=== PATIENT | female | born 1960 | race Caucasian/White ===

== ENCOUNTER 2020-05-12 10:52 | Outpatient (CLI) | payer BC, SELFPAY ==
[2020-05-12 11:44] LABS: Alanine Aminotransferase 16 U/L (4-35); Albumin Level 4.2 g/dL (3.5-5.1); Alkaline Phosphatase 79 U/L (38-126); Anion Gap 6 mmol/L (8-16); Aspartate Amino Transferase 23 U/L (14-36); Bilirubin,Total 0.4 mg/dL (0.2-1.3); Blood Urea Nitrogen 12 mg/dL (7-17); Calcium 9.1 mg/dL (8.4-10.2); Carbon Dioxide 32 mmol/L (22-30); Chloride 104 mmol/L (98-107); Cholesterol 168 mg/dL (0-200); Estimated Glomerular Filt Rate > 60; Glucose 89 mg/dL (65-105); HDL Direct 48 mg/dL; Potassium 4.1 mmol/L (3.4-5.0); Sodium 142 mmol/L (137-145); Triglycerides 100 mg/dL (<150)
[2020-05-12 11:55] LABS: LDL Cholesterol Direct 91 mg/dL
== END 2020-05-12 10:53 | disposition home or self-care (01) ==
PROVIDERS: PCP Family Medicine; Visit Provider Physician Assistant
DX: Z00.00 Encounter for general adult medical examination without abnormal findings (principal)
CPT/HCPCS: 36415; 80053; 80061

== ENCOUNTER 2022-01-16 10:27 | Outpatient (CLI) | payer BC, OTHER, SELFPAY ==
[2022-01-16 11:19] LABS: Alanine Aminotransferase 17 U/L (6-35); Albumin Level 4.3 g/dL (3.5-5.1); Alkaline Phosphatase 97 U/L (38-126); Anion Gap 7 mmol/L (8-16); Aspartate Amino Transferase 22 U/L (14-36); Bilirubin,Total 0.5 mg/dL (0.2-1.3); Blood Urea Nitrogen 13 mg/dL (7-17); Calcium 9.3 mg/dL (8.4-10.2); Carbon Dioxide 32 mmol/L (22-30); Chloride 99 mmol/L (98-107); Cholesterol 199 mg/dL (0-200); Estimated Glomerular Filt Rate > 60; Glucose 100 mg/dL (65-110); HDL Direct 45 mg/dL; Potassium 4.3 mmol/L (3.4-5.0); Sodium 138 mmol/L (137-145); Triglycerides 130 mg/dL (<150)
[2022-01-16 11:36] LABS: LDL Cholesterol Direct 121 mg/dL
== END 2022-01-16 10:28 | disposition home or self-care (01) ==
PROVIDERS: PCP Family Medicine; Visit Provider Physician Assistant
DX: Z13.220 Encounter for screening for lipoid disorders (principal); Z13.1 Encounter for screening for diabetes mellitus
CPT/HCPCS: 36415; 80053; 80061

== ENCOUNTER → 2022-03-28 12:45 | Outpatient (CLI) | payer BC, OTHER, SELFPAY ==
--- NOTE | ~2022-03-28 | MM_ITS ---
EXAMINATION: MM screening joe BI w mandy HISTORY: Screening TECHNIQUE: Craniocaudal and mediolateral oblique 3-D tomosynthesis images were obtained and synthetic 2-D images were generated. CAD analysis was submitted and interpreted. COMPARISON: Comparison to multiple prior studies sequentially, with oldest reviewed study dated 08/06. BREAST PARENCHYMAL COMPOSITION: The breasts are heterogeneously dense, which may obscure small masses FINDINGS: There are multiple bilateral breast masses scattered throughout both breasts which are part ially obscured by fibroglandular tissue. Some of these masses are new or increased in size compared w ith prior examinations. IMPRESSION: 1. New or developing bilateral breast masses. 2. Additional mammographic views and possible breast ultrasound are recommended. BI-RADS Category 0: Incomplete: Needs additional imaging evaluation. Reviewed, dictated and finalized at location A. IMPRESSION: 1. New or developing bilateral breast masses. 2. Additional mammographic views and possible breast ultrasound are recommended . BI-RADS Category 0: Incomplete: Needs additional imaging evaluation.
== END ==
PROVIDERS: PCP Family Medicine; Visit Provider Physician Assistant
DX: Z12.31 Encounter for screening mammogram for malignant neoplasm of breast (principal); R92.8 Other abnormal and inconclusive findings on diagnostic imaging of breast
CPT/HCPCS: 77063; 77067

== ENCOUNTER → 2022-04-18 08:46 | Outpatient (CLI) | payer BC, OTHER, SELFPAY ==
--- NOTE | ~2022-04-18 | MMUS_ITS ---
EXAMINATION: MM diagnostic joe BI w mandy, US breast BI complete HISTORY: Follow-up bilateral breast masses TECHNIQUE: Additional 3-D tomosynthesis images of the breasts were performed and synthetic 2-D images were generated. CAD analysis was submitted and interpreted. High resolution bilateral complete breas t ultrasound was performed. COMPARISON: Comparison to multiple prior studies sequentially, with oldest reviewed study dated 09/08. BREAST PARENCHYMAL COMPOSITION: The breasts are heterogeneously dense, which may obscure small masses FINDINGS: MAMMOGRAPHIC FINDINGS: There are persistent bilateral breast masses scattered throughout both breasts which are obscured by dense fibroglandular tissue. ULTRASOUND: Complete bilateral US of all 4 quadrants of the breasts and retroareolar region was reviewed. Right breast: There are multiple cysts of the right breast. At 1:00, 3 cm from the nipple there is a 5 mm oval hypoechoic mass without posterior enhancement, parallel orientation, no significant posteri or features or internal vascularity. At 3:00, 4 cm from the nipple there is an oval hypoechoic mass m easuring 3 mm, likely a complicated cyst. At 5:00, 4 cm from the nipple, there is a 6 mm cyst. At 9:0 0, 5 cm from the nipple, there is a 5 mm cyst. Left breast: At 1:00, 2 cm from the nipple there is an oval hypoechoic mass measuring 6 mm with low-l evel internal echoes, parallel orientation, posterior acoustic enhancement and no significant vascula rity. At 2:00, 7 cm from the nipple there is a 4 mm cyst. At 2:00, 6 cm from the nipple there is a 6 mm cyst. At 2:00, 6 cm from the nipple there is 5 mm cyst. At 6:00, 4 cm from the nipple there is an oval slightly hypoechoic 7 mm mass with some areas of posterior shadowing, no internal vascularity an d parallel orientation. At 7:00, 4 cm from the nipple there is a minimally complicated cyst, likely c ontaining calcification. At 8:00, 3 cm from the nipple there is a 5 mm cyst. At 11:00, 5 cm from the nipple, there is an oval hypoechoic 3 mm mass likely a complicated cyst. IMPRESSION: 1. Solid-appearing hypoechoic mass of the left breast at 6:00, 4 cm from the nipple with some areas o f posterior shadowing. Ultrasound-guided left breast biopsy recommended. 2. Multiple additional likely benign bilateral breast masses are identified by ultrasound and mammogr am. Six-month follow-up bilateral mammogram and ultrasound recommended for these masses. BI-RADS category 4, suspicious findings. Reviewed, dictated and finalized at location A. IMPRESSION: 1. Solid-appearing hypoechoic mass of the left breast at 6:00, 4 cm from the ni pple with some areas of posterior shadowing. Ultrasound-guided left breast biop sy recommended. 2. Multiple additional likely benign bilateral breast masses are identified by ultrasound and mammogram. Six-month follow-up bilateral mammogram and ultrasoun d recommended for these masses. BI-RADS category 4, suspicious findings.
== END ==
PROVIDERS: PCP Family Medicine; Visit Provider Family Medicine
DX: R92.8 Other abnormal and inconclusive findings on diagnostic imaging of breast (principal)
CPT/HCPCS: 76641; 77062; 77066; G0279

== ENCOUNTER → 2023-06-06 13:48 | Outpatient (CLI) | payer BC, OTHER, SELFPAY ==
--- NOTE | ~2023-06-06 | MM_ITS ---
EXAMINATION: MM screening joe BI w mandy HISTORY: Screening mammogram TECHNIQUE: Craniocaudal and mediolateral oblique 3-D tomosynthesis images were obtained and synthetic 2-D images were generated. CAD analysis was submitted and interpreted. COMPARISON: 04/18/2022 diagnostic bilateral mammogram and bilateral complete breast ultrasound examina tion 03/28/2022 bilateral screening mammogram 02/02/2020 bilateral screening mammogram BREAST PARENCHYMAL COMPOSITION: The breasts are heterogeneously dense, which may obscure small masses . FINDINGS: There are scattered bilateral benign calcifications. There are multiple scattered bilateral benign appearing circumscribed low density subcentimeter opaci ties. There is no evidence of suspicious mass, calcification, or architectural distortion to suggest malign emely in either breast. There has been no suspicious interval change. IMPRESSION: 1. Benign findings. No mammographic evidence of malignancy. 2. Recommend routine screening mammography in one year. BI-RADS Category 2: Benign finding(s). Reviewed, dictated and finalized at location A. TECHNICIAN
== END ==
PROVIDERS: PCP Physician Assistant; Visit Provider Physician Assistant
DX: Z12.31 Encounter for screening mammogram for malignant neoplasm of breast (principal)
CPT/HCPCS: 77063; 77067

== ENCOUNTER → 2023-08-01 12:12 | Outpatient (CLI) | payer BC, OTHER, SELFPAY ==
--- NOTE | ~2023-08-01 | DEXA_ITS ---
Bone Density Report Name: PO FOLEY Age: 62 Sex: Female Ethnicity: White Date of : 1960 Indication: postmenopausal; screening for osteoporosis; height loss; hysterectomy; Referring Provider: ADARSH BANEGAS Study: Bone densitometry was performed. Exam Date: August 01, 2023 Accession number: [id number] Bone Density: Region BMD T-score Z-score Classification AP Spine (L1-L4) 1.018 -0.3 1.3 Normal Femoral Neck (Left) 0.810 -0.3 1.0 Normal Total Hip (Left) 1.030 0.7 1.8 Normal Femoral Neck (Right) 0.834 -0.1 1.3 Normal Total Hip (Right) 1.012 0.6 1.7 Normal Total Hip Mean 1.021 0.7 1.8 Normal World Health Organization criteria for BMD impression classify patients as: Normal (T-score at or above -1.0), Osteopenia (T-score between -1.0 and -2.5), or Osteoporosis (T-score at or below -2.5). 10-year Fracture Risk: FRAX not reported because: All T-scores for Spine Total, Hip Total, Femoral Neck at or above -1.0 Clinical Information Provided by Patient: Has the following medical conditions: Hysterectomy Patient maximum height was 64.25 Menopause Age: 39 No regular weight bearing exercise Does not regularly consume dairy products Drinks caffeinated beverages Onset of menses at age 13 Number of children 2 Impression: The patient has normal bone mass. Discussion: BONE DENSITY IS ABOVE THE MINIMUM DESIRABLE LEVEL AT ALL SKELETAL SITES TESTED. This patient?s bone mineral density is above the minimum desirable level (T-score -1.0 or better) at all sites measured. The patient should follow a healthful lifestyle (good nutrition with adequate calcium and vitamin D, and appropriate weight-bearing exercise). Follow-Up: Consider repeating this study in 5 years or sooner if there is some new clinical indication. Reported by: [facility] on 08/01/2023 12:28:00 PM. Reviewed, dictated and finalized at location AFelipa DELEON
== END ==
PROVIDERS: PCP Physician Assistant; Visit Provider Physician Assistant
DX: Z78.0 Asymptomatic menopausal state (principal)
CPT/HCPCS: 77080

== ENCOUNTER 2024-01-29 09:54 | Outpatient (CLI) | payer BC, OTHER, SELFPAY ==
[2024-01-29 10:51] LABS: Alanine Aminotransferase 25 U/L (6-35); Albumin Level 4.2 g/dL (3.5-5.1); Alkaline Phosphatase 92 U/L (38-126); Anion Gap 7 mmol/L (4-12); Aspartate Amino Transferase 28 U/L (14-36); Bilirubin,Total 0.4 mg/dL (0.2-1.3); Blood Urea Nitrogen 12 mg/dL (7-17); Carbon Dioxide 32 mmol/L (22-30); Chloride 100 mmol/L (98-107); Cholesterol 203 mg/dL (0-200); Estimated Glomerular Filt Rate > 60; Glucose 87 mg/dL (65-110); HDL Direct 52 mg/dL; Potassium 4.2 mmol/L (3.4-5.0); Sodium 139 mmol/L (137-145); Triglycerides 166 mg/dL (<150)
[2024-01-29 11:03] LABS: LDL Cholesterol Direct 114 mg/dL
== END 2024-01-29 09:55 | disposition home or self-care (01) ==
LOC: ANHLAB 09:55
PROVIDERS: PCP Family Medicine; Visit Provider Student in an Organized Health Care Education/Training Program
DX: Z00.00 Encounter for general adult medical examination without abnormal findings (principal)
CPT/HCPCS: 36415; 80053; 80061

== ENCOUNTER 2024-03-24 10:00 | Outpatient (RCR) | payer BC, OTHER, SELFPAY ==
--- NOTE | 2024-01-18 10:55 | OPREHPOC ---
Outpatient Therapy Plan of Care This is a Multidisciplinary Plan of Care that may contain components documented by all disciplines (PT, OT, and ST.) PT Problem 1 PT Problem #1 Knowledge Deficit PT Goal 1 Goal *indep with HEP Target Visit 8 PT Problem 2 PT Problem #2 Pain PT Goal 1 Goal 1* pain rating L ankle of 5/10 at worst 2* pt self assessment LE functional scale rating of 28% limitation in activity 3* pt report standing/walking tolerance of 2 hours before have to sit down Target Visit 8 PT Problem 3 PT Problem #3 Impaired Strength PT Goal 1 Goal increase strength of L ankle, to improve stability with walking and activity 1* single leg standing x 15 seconds 2* 2 minute walking test distance of 520' 3* sitting with heel on ground, ankle inversion and eversion with 4# wt over forefoot x 10 reps through full ROM Target Visit 8
--- NOTE | 2024-01-18 10:55 | PTOPEVAL1 ---
Assessment and note entered by Nirali Rowland PT Evaluation Information Assessment Status Evaluation Diagnosis peroneal tendinitis L ICD-10 Condition Codes (PT) M25.572,R26.9,Weakness R53.1 Onset August 2023 Subjective Information chronic issues with ankle sprain/pain; gradual increase without any recent injury; had injection 12-19-23: helped a little with the pain, but not as much as the injections in the past have; had PT in the past: doing exercises from: ABC's, ankle stretch and moving around, standing PF, gastroc stretch; activity: indep with home and self care tasks, but move slowly- take steps one at a time for laundry in basement; walking is limited due to ankle pain; 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 Self assessment LE functional scale rating of 41% limitation in activity level. Standing, walking and sleeping are limited due to ankle pain. With the evaluation: ankle ROM is WNL, with weakness of inversion and eversion motions and decreased single leg standing. Two minute walking test distance of 450' with pain increase to 2/10; spasms and tenderness with palpation over distal -lateral malleoli and heel areas, with spasms through gastroc - soleus. Skilled PT services are indicated for modalities to decrease pain, therapeutic exercises to increase ankle strength with education for HEP and posture of foot/ankle. Plan of Care Interventions Elect
--- NOTE | 2024-01-18 11:01 | PCPTNOTE ---
during eval, pt stated that she will be out of town from Feb 03 to Mar 06.
--- NOTE | 2024-03-24 10:52 | PTOPDC ---
Assessment and note entered by Rene Stewart, PT Evaluation Information Assessment Status Discharge Diagnosis peroneal tendinitis L ICD-10 Condition Codes (PT) M25.572,R26.9,Weakness R53.1 Onset August 2023 Subjective Information Reports that she feels she is significantly better overall. She has minimal pain at worst and feels she is walking much better. She does not feel inhibited by her ankle at this time. Reported Pain Level Pain Score 0: Self Report Assessment PT Clinical Summary Patient has met all goals for therapy and is suitable for discharge to [facility] at this time. No concerns for discharge. Plan of Care PT Services Indicated D/C to [facility]
== END 2024-03-24 11:52 | disposition home or self-care (01) ==
LOC: ANHPT 10:00
PROVIDERS: PCP Physician Assistant; Visit Provider Orthopaedic Surgery
DX: M76.72 Peroneal tendinitis, left leg (principal)
CPT/HCPCS: 97110; 97116; 97140; 97161; 97530

== ENCOUNTER 2024-07-09 14:17 | Outpatient (CLI) | payer BC, OTHER, SELFPAY ==
--- NOTE | ~2024-07-09 | MM_ITS ---
EXAMINATION: MM screening joe BI w mandy HISTORY: Screening TECHNIQUE: Craniocaudal and mediolateral oblique 3-D tomosynthesis images were obtained and synthetic 2-D images were generated. CAD analysis was submitted and interpreted. COMPARISON: Comparison to multiple prior studies sequentially, with oldest reviewed study dated 09/28. BREAST PARENCHYMAL COMPOSITION: Dense: The breasts are heterogeneously dense, which may obscure small masses FINDINGS: There are multiple obscured bilateral breast masses. There are scattered bilateral benign-a ppearing breast calcifications. IMPRESSION: 1. Multiple bilateral breast masses. 2. Additional mammographic views and possible breast ultrasound are recommended. BI-RADS Category 0: Incomplete: Needs additional imaging evaluation. Reviewed, dictated and finalized at location A. AGE CONTROL CLERK IMPRESSION: 1. Multiple bilateral breast masses. 2. Additional mammographic views and possible breast ultrasound are recommended . BI-RADS Category 0: Incomplete: Needs additional imaging evaluation.
== END 2024-07-09 14:18 | disposition home or self-care (01) ==
PROVIDERS: PCP Family Medicine; Visit Provider Student in an Organized Health Care Education/Training Program
DX: Z12.31 Encounter for screening mammogram for malignant neoplasm of breast (principal); R92.8 Other abnormal and inconclusive findings on diagnostic imaging of breast
CPT/HCPCS: 77063; 77067

== ENCOUNTER 2024-07-22 09:49 | Outpatient (CLI) | payer BC, OTHER, SELFPAY ==
--- NOTE | ~2024-07-22 | MMUS_ITS ---
EXAMINATION: US breast BI complete, MM diagnostic joe BI w mandy HISTORY: Follow-up bilateral breast masses TECHNIQUE: Additional 3-D tomosynthesis images of the breasts were performed and synthetic 2-D images were generated. CAD analysis was submitted and interpreted. High resolution complete bilateral breas t ultrasound was performed. COMPARISON: Comparison to multiple prior studies sequentially, with oldest reviewed study dated 03/18. BREAST PARENCHYMAL COMPOSITION: Dense: The breasts are heterogeneously dense, which may obscure small masses FINDINGS: MAMMOGRAPHIC FINDINGS: There are multiple small bilateral breast masses scattered throughout both breasts, partially obscure d by fibroglandular tissue. There are benign bilateral breast calcifications. No architectural distor tion. ULTRASOUND: Complete US of all 4 quadrants of the breast/s and retroareolar region was reviewed. There are multip le bilateral simple cysts throughout both breasts. There are no suspicious masses in either breast to suggest malignancy. IMPRESSION: 1. No evidence for malignancy in either breast. Benign bilateral breast cysts corresponding to masses identified on mammography. 2. Routine yearly screening mammogram and regular clinical breast examination are recommended. BI-RADS Category 2: Benign finding(s). Reviewed, dictated and finalized at location B. NERATION OPERATOR IMPRESSION: 1. No evidence for malignancy in either breast. Benign bilateral breast cysts c orresponding to masses identified on mammography. 2. Routine yearly screening mammogram and regular clinical breast examination a re recommended. BI-RADS Category 2: Benign finding(s).
== END 2024-07-22 09:50 | disposition home or self-care (01) ==
LOC: MICIMG 09:52
PROVIDERS: PCP Family Medicine; Visit Provider Student in an Organized Health Care Education/Training Program
DX: N63.0 Unspecified lump in unspecified breast (principal)
CPT/HCPCS: 76641; 77062; 77066; G0279

== ENCOUNTER 2024-08-04 10:28 | Outpatient (CLI) | payer BC, OTHER, SELFPAY ==
[2024-08-04 10:44] LABS: Basophils Percent Auto 0.4 % (0.2-1.2); Eosinophils Absolute Auto 0.1 K/mm3 (0-0.3); Eosinophils Percent Auto 1.8 % (0-4.4); Hematocrit 35.2 % (37.0-47.0); Hemoglobin 10.5 g/dL (12.0-15.0); Immature Granulocyte Absolute 0.02 K/mm3 (0.00-0.031); Immature Granulocyte Percent A 0.3 % (0-0.5); Lymphocytes Absolute Auto 3.05 K/mm3 (0.9-3.2); Lymphocytes Percent Auto 45.1 % (18.3-44.2); Mean Corpuscular HGB Conc 29.8 g/dl (32-36); Mean Corpuscular Hemoglobin 27.6 pg (26-34); Mean Corpuscular Volume 92.4 fl (80-100); Mean Platelet Volume 10.1 fl (7.4-10.4); Monocytes Absolute Auto 0.4 K/mm3 (0.1-0.6); Monocytes Percent Auto 6.4 % (2.6-8.5); Neutrophils Absolute Auto 3.1 K/mm3 (1.3-6.7); Platelet Count Result 224 k/mm3 (150-375); Red Blood Count 3.81 M/mm3 (4.2-5.4); Red Cell Distribution Width 15.6 % (11.5-14.5); White Blood Count 6.8 K/mm3 (4.5-10.0)
[2024-08-04 10:52] LABS: Hemoglobin A1C 5.3 % (<5.7)
[2024-08-04 11:03] LABS: Alanine Aminotransferase 21 U/L (6-35); Albumin Level 4.1 g/dL (3.5-5.1); Alkaline Phosphatase 86 U/L (38-126); Anion Gap 9 mmol/L (4-12); Aspartate Amino Transferase 25 U/L (14-36); Bilirubin,Total 0.6 mg/dL (0.2-1.3); Blood Urea Nitrogen 12 mg/dL (7-17); Calcium 9.2 mg/dL (8.4-10.2); Carbon Dioxide 28 mmol/L (22-30); Chloride 103 mmol/L (98-107); Cholesterol 196 mg/dL (0-200); Estimated Glomerular Filt Rate > 60; Glucose 93 mg/dL (65-110); HDL Direct 49 mg/dL; Potassium 4.3 mmol/L (3.4-5.0); Sodium 140 mmol/L (137-145); Triglycerides 116 mg/dL (<150)
[2024-08-04 11:14] LABS: LDL Cholesterol Direct 110 mg/dL
[2024-08-04 11:26] LABS: Free T4 Free Thyroxine 1.02 ng/dL (0.78-2.19)
[2024-08-04 11:58] LABS: Eosinophils Absolute Manual 0.13 K/mm3 (0.02-0.50); Eosinophils Percent Manual 2 % (0-4); Lymphocytes Absolute Manual 3.19 K/mm3 (1.1-4.5); Lymphocytes Percent Manual 47 % (18-44); Monocytes Absolute Manual 0.47 K/mm3 (0.1-0.90); Monocytes Percent Manual 7 % (3-9); Neutrophils Percent Manual 47 % (46-73); Total Cells Counted 100
[2024-08-04 11:59] LABS: Hypochromasia 1+; Platelet Estimate Adequate (Adequate); Schistocytes None Seen
--- OUTSIDE RECORDS SUMMARY | 2024-08-04 13:35 | XMS_ITS | Encounter Summary ---
Author Organization [facility] Healthcare Address [address] [place] [address] Care Team Providers Care Paintless Dent Repair Technician Name Role Phone Unavailable Primary Care Provider Unavailabl e Reason for Visit * Diagnostic Imaging (Routine) - Closed Specialty Diagnoses / Procedures Referred By Contac t Referred To Contact Procedures Breast Imaging Screening Outside Reference Meli Farley MD Phone: tel: fax: Referral ID Status Reason Start Date Expiration Date Visits Re quested Visits Authorized [id number] Closed 04/21/2022 05/21/2023 1 1 Encounter Details Date Type Department Care Team (Late st Contact Info) Description 08/03/2014 Hospital Encounter [facility] [address] [place] [id number] Social History Tobacco Use Types Packs/Day Years Used Date Smoking Tobacco: Never Assessed Comments Unknown Sex and Gender Information Value Date Recorded Sex Assigned at Not on file Legal Sex Female 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 Gender Identity Not on file Sexual Orientation Not on file documented as of this encounter Plan of Treatment Not on file documented as of this encounter Procedures Procedure Name Priority Date/Time Associated Diagnosis Comments BREAST IMAGING MG SCREENING OUTSIDE REFERENCE Routine 08/03/2014 12:00 AM COAL BRIQUETTE MACHINE OPERATOR documented in this encounter Results * Breast Imaging Screening Outside Reference (08/03/2014 12:00 AM COAL BRIQUETTE MACHINE OPERATOR) Impressions RAD_MAMMO[facility] - 04/21/2022 1:09 PM CDT These images are for Reference purposes only and have not been reviewed by [facility]iology. There will be no report generated by a [facility] Radiologist. Narrative [facility]_MAMMO[facility] - 04/21/2022 1:09 PM CDT EXAMINATION: Images For Reference Purposes Only us Meli Farley MD IMG MAMMO PROCEDURES Final Resu lt [facility] documented in this encounter Visit Diagnoses Not on filedocumented in this encounter
--- OUTSIDE RECORDS SUMMARY | 2024-08-04 13:35 | XMS_ITS | Encounter Summary ---
Author Organization [facility] Healthcare Address [address] [place] [address] Care Team Providers Care Charm Filter Operator Helper Name Role Phone Unavailable Primary Care Provider Unavailabl e Reason for Visit * Diagnostic Imaging (Routine) - Closed Specialty Diagnoses / Procedures Referred By Contac t Referred To Contact Procedures Breast Imaging Diagnostic Outside Reference Meli Farley MD Phone: tel: fax: Referral ID Status Reason Start Date Expiration Date Visits Re quested Visits Authorized [id number] Closed 04/21/2022 05/21/2023 1 1 Encounter Details Date Type Department Care Team (Late st Contact Info) Description 09/22/[address] Encounter 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 There will be no report generated by a [facility] Radiologist. Narrative [facility]_MAMMO[facility] - 04/21/2022 1:13 PM CDT EXAMINATION: Images For Reference Purposes Only us Meli Farlye MD IMG MAMMO PROCEDURES Final Resu lt [facility] documented in this encounter Visit Diagnoses Not on filedocumented in this encounter
--- OUTSIDE RECORDS SUMMARY | 2024-08-04 13:35 | XMS_ITS | Encounter Summary ---
Author Organization [facility] Healthcare Address [address] [place] [address] Care Team Providers Care Mri Supervisor Name Role Phone Unavailable Primary Care Provider Unavailabl e Reason for Visit * Diagnostic Imaging (Routine) - Closed Specialty Diagnoses / Procedures Referred By Contac t Referred To Contact Procedures Breast Imaging Diagnostic Outside Reference Meli Farley MD Phone: tel: fax: Referral ID Status Reason Start Date Expiration Date Visits Re quested Visits Authorized [id number] Closed 04/21/2022 05/21/2023 1 1 Encounter Details Date Type Department Care Team (Late st Contact Info) Description 08/06/2014 Hospital Encounter [facility] [address] [place] [id number] Social History Tobacco Use Types Packs/Day Years Used Date Smoking Tobacco: Never Assessed Comments Unknown Sex and Gender Information Value Date Recorded Sex Assigned at Not on file Legal Sex Female 6:26 PM SINGLE END SEWER Gender Identity Not on file Sexual Orientation Not on file documented as of this encounter Plan of Treatment Not on file documented as of this encounter Procedures Procedure Name Priority Date/Time Associated Diagnosis Comments BREAST IMAGING MG DIAGNOSTIC OUTSIDE REFERENCE Routine 08/06/2014 12:00 AM SINGLE END SEWER documented in this encounter Results * Breast Imaging Diagnostic Outside Reference (08/06/2014 12:00 AM SINGLE END SEWER) Impressions RAD_MAMMO[facility] - 04/21/2022 1:12 PM CDT These images are for Reference purposes only and have not been reviewed by [facility]. There will be no report generated by a [facility] Radiologist. Narrative [facility]_M[facility]MO[facility] - 04/21/2022 1:12 PM CDT EXAMINATION: Images For Reference Purposes Only us Meli Farley MD IMG MAMMO PROCEDURES Final Resu lt [facility] documented in this encounter Visit Diagnoses Not on filedocumented in this encounter
--- OUTSIDE RECORDS SUMMARY | 2024-08-04 13:35 | XMS_ITS | Patient Health Summary ---
Author Organization [facility] Address [address] [address] Care Team Providers Care Computer Help Desk Specialist Name Role Phone Unavailable Primary Care Provider Unavailabl e Note from [facility],non-owned Affiliates and Associated Physician Practices is amultiple site organization consisting of ambulatory clinics and hospital sitesin [place], [place], [place] and [place]. This disclosure is being madepursuant to the Care Everywhere program and may not contain all information available regarding this patient. Last updated 18.[facility] Social History Tobacco Use Types Packs/Day Years Used Date Smoking Tobacco: Never Assessed Sex and Gender Information Value Date Recorded Sex Assigned at Not on file Gender Identity Not on file Sexual Orientation Not on file Procedures * GROSS + MICRO EXAM(Performed 04/29/2007) Results * GROSS + MICRO EXAM (04/29/2007 8:55 AM STAPLE SIDE LASTER) Result CASE NUMBER [id number] Comment: ORDERING PHYSICIAN VICTOR MANUEL OCAMPO SPECIMEN TYPE Ovary with Tube-left *CLINICAL HISTORY A 46 year old female with chronic pelvic pain, pelvic fullness likely secondary to adhesions underwent laparoscopy. SPECIMEN SOURCE A) Left ovary and tube. B) Right ovary and tube. C) Biopsy, intestinal serosa, rule out endometriosis. GROSS DESCRIPTION The specimen is received in one part. A) Received in formalin, labeled with the patient's identification, and designated left ovary and tube are four fragments of [id number], rubbery fragments aggregating to 4 x 4 x 0.3 cm. Grossly, they are consistent with a disrupted ovarian/tubal complex. The largest fragment contains a portion of ovary (2.2 x 1.8 cm) with a 1.2 cm cavity and a portion of fallopian tube measuring 3.5 cm in length x 0.6 cm in greatest diameter. No mass is seen. The serosa of fallopian tube appears focally hyperemic. The remaining small irregular fragment appears to a portion of ovarian tissue. A strategic partnership representative portion is submitted. Cassette summary A1 Ovary and tube, from largest piece. A2 Random section from small fragment. B) Received in formalin, labeled with the patient's identification, and designated right ovary and tube are multiple irregular fragments of disrupted ovarian-tube complex aggregating to 4 x 3 x 0.5 cm. The largest fragment measures up to 3.8 cm and contains a portion of disrupted white-purple ovarian tissue without mass lesions and a portion of probably fallopian tube without recognizable fimbriate measuring 1.6 cm in length x 0.3 cm in diameter. The remainders are small irregular fragments of what appears to be ovarian tissue. A strategic partnership representative portion is submitted in cassettes B1 and B2. Cassette summary B1 Multiple pieces from largest fragment. B2 Random section from small fragments. C) Received in formalin, labeled with the patient's identification, and designated biopsy, intestinal serosa, rule out endometriosis are two minute fragments of brown, soft tissue up to 0.2 x 0.1 x <0.1 cm. Submitted entirely in cassette C1. HC/lw GROSSED BY LEIA BALTAZAR M.D. *MICROSCOPIC EXAM Microscopic examination substantiates the above cited diagnosis. READ BY LEIA BALTAZAR M.D. DIAGNOSIS A) OVARY AND TUBE, LEFT, SALPINGO-OOPHORECTOMY -SEROSAL ADHESIONS WITH FOREIGN BODY GIANT CELL AND HISTIOCYTIC REACTION. -FRAGMENTS OF BENIGN OVARY AND FALLOPIAN TUBE. -PARATUBAL SIMPLE CYST. B) OVARY AND TUBE, RIGHT, SALPINGO-OOPHORECTOMY -SEROSAL ADHESIONS WITH FOREIGN BODY GIANT CELL AND HISTIOCYTIC REACTION. -FRAGMENTS OF BENIGN OVARY AND FALLOPIAN TUBE. -PARATUBAL SIMPLE CYST. -WARTHIAN REST. -ENDOSALPINGIOSIS, OVARY. -MESOTHELIAL CYST, OVARY. C) PERITONEUM, INTESTINAL SEROSA, BIOPSY -FOREIGN BODY GIANT CELL AND HISTIOCYTIC REACTION. *COMMENT There are sheets of foamy macrophages admixed with scattered foreign body giant cells over the ovarian and tubal surface as well as in sections of intestinal serosa. Rare foreign body giant cells in sections of the specimen C are associated with polarizable suture-like material. Evidence of endometriosis or malignancy is not seen. RELEASED BY LEIA BALTAZAR MISCELLANEOUS SAMPLES / Unknown 04/29/2007 8:55 AM STAPLE SIDE LASTER 04/29/2007 12:19 PM STAPLE SIDE LASTER Historical Provider LAB - PATHOLOGY/C YTOLOGY ORDERABLES
--- OUTSIDE RECORDS SUMMARY | 2024-08-04 13:35 | XMS_ITS | Encounter Summary ---
Author Organization [facility] Healthcare Address [address] [place] [address] Care Team Providers Care Senior Electrical Designer Name Role Phone Unavailable Primary Care Provider Unavailabl e Reason for Visit * Diagnostic Imaging (Routine) - Closed Specialty Diagnoses / Procedures Referred By Contac t Referred To Contact Procedures Breast Imaging Screening Outside Reference Meli Farley MD Phone: tel: fax: Referral ID Status Reason Start Date Expiration Date Visits Re quested Visits Authorized [id number] Closed 04/21/2022 05/21/2023 1 1 Encounter Details Date Type Department Care Team (Late st Contact Info) Description 09/28/2016 Hospital Encounter [facility] [address] [place] [phone] Social History Tobacco Use Types Packs/Day Years Used Date Smoking Tobacco: Never Assessed Comments Unknown Sex and Gender Information Value Date Recorded Sex Assigned at Not on file 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 There will be no report generated by a [facility] Radiologist. Narrative RAD_MAMMO_[facility] - 04/21/2022 1:13 PM CDT EXAMINATION: Images For Reference Purposes Only us Meli Farley MD IMG MAMMO PROCEDURES Final Resu lt RAD_MAMMO_[facility] documented in this encounter Visit Diagnoses Not on filedocumented in this encounter
--- OUTSIDE RECORDS SUMMARY | 2024-08-04 13:35 | XMS_ITS | Encounter Summary ---
Author Organization [facility] Healthcare Address [address] [place] [address] Care Team Providers Care Compressor Repairer Name Role Phone Unavailable Primary Care Provider Unavailabl e Reason for Visit * Diagnostic Imaging (Routine) - Closed Specialty Diagnoses / Procedures Referred By Contac t Referred To Contact Procedures Breast Imaging Screening Outside Reference Meli Farley MD Phone: tel: fax: Referral ID Status Reason Start Date Expiration Date Visits Re quested Visits Authorized [id number] Closed 04/21/2022 05/21/2023 1 1 Encounter Details Date Type Department Care Team (Late st Contact Info) Description 04/23/2013 Hospital Encounter [facility]iology [facility] [address] [place] [phone] Social History Tobacco Use Types Packs/Day Years Used Date Smoking Tobacco: Never Assessed Comments Unknown Sex and Gender Information Value Date Recorded Sex Assigned at Not on file 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 Gender Identity Not on file Sexual Orientation Not on file documented as of this encounter Plan of Treatment Not on file documented as of this encounter Procedures Procedure Name Priority Date/Time Associated Diagnosis Comments BREAST IMAGING MG SCREENING OUTSIDE REFERENCE Routine 04/23/2013 12:00 AM HEALTHCARE APPLICATIONS ANALYST documented in this encounter Results * Breast Imaging Screening Outside Reference (04/23/2013 12:00 AM HEALTHCARE APPLICATIONS ANALYST) Impressions RAD_MAMMO_[facility] - 04/21/2022 1:06 PM CDT These images are for Reference purposes only and have not been reviewed by [facility] Radiology. There will be no report generated by a [facility] Radiologist. Narrative RAD_MAMMO_[facility] - 04/21/2022 1:06 PM CDT EXAMINATION: Images For Reference Purposes Only us Meli Farley MD IMG MAMMO PROCEDURES Final Resu lt RAD_MAMMO_[facility] documented in this encounter Visit Diagnoses Not on filedocumented in this encounter
--- OUTSIDE RECORDS SUMMARY | 2024-08-04 13:35 | XMS_ITS | Referral Summary ---
Author Organization 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 [employer] Member Subscriber Plan / Payer (Ef fective 2021-Present) Name:Becky Foley Relation to Subscriber:Spouse Name:DILLON FOLEY Date of :1961 (Home) Address: [address] [place] [address] Payer ID:[id number] (NAIC) Group ID:[id number] Type:[facility] Address: [facility] [id number] [id number] [employer] [facility] CLAIMS [facility] [employer] Member Subscriber Plan / Payer (Ef fective 2021-Present) Name:Becky Foley Relation to Subscriber:Spouse Name:DILLON FOLEY Date of :1961 (Home) Address: [address] [facility] [place] [address] Payer ID:[id number] (NAIC) Group ID:[id number] Type:[facility] Address: [address] Care Teams Shactor Helper Relationship Specialty Start Date End Date Meli Farley MD PCP - General Family Medicine 05/02/22
--- OUTSIDE RECORDS SUMMARY | 2024-08-04 13:35 | XMS_ITS | Encounter Summary ---
Author Organization [facility] Healthcare Address [address] [place] [address] Care Team Providers Care Director Of Golf Name Role Phone Unavailable Primary Care Provider Unavailabl e Reason for Visit * Diagnostic Imaging (Routine) - Closed Specialty Diagnoses / Procedures Referred By Contac t Referred To Contact Procedures Breast Imaging US Outside Reference Meli Farley MD Phone: tel: fax: Referral ID Status Reason Start Date Expiration Date Visits Re quested Visits Authorized [id number] Closed 04/21/2022 05/21/2023 1 1 Encounter Details Date Type Department Care Team (Late st Contact Info) Description 09/22/2015 12:05 AM CDT Hospital Encounter [facility] [place] [facility]iology [facility] [address] [place] [phone] Social History Tobacco Use Types Packs/Day Years Used Date Smoking Tobacco: Never Assessed Comments Unknown Sex and Gender Information Value Date Recorded Sex Assigned at Not on file 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 There will be no report generated by a [facility] Radiologist. Narrative RAD_MAMMO_[facility] - 04/21/2022 1:13 PM CDT EXAMINATION: Images For Reference Purposes Only us Meli Farley MD IMG MAMMO PROCEDURES Final Resu lt RAD_MAMMO_[facility] documented in this encounter Visit Diagnoses Not on filedocumented in this encounter
--- OUTSIDE RECORDS SUMMARY | 2024-08-04 13:35 | XMS_ITS | Encounter Summary ---
Author Organization [facility] Healthcare Address [address] [place] [address] Care Team Providers Care Bioprocess Engineer Name Role Phone Unavailable Primary Care Provider Unavailabl e Reason for Visit * Diagnostic Imaging (Routine) - Closed Specialty Diagnoses / Procedures Referred By Contac t Referred To Contact Procedures Breast Imaging Screening Outside Reference Meli Farley MD Phone: tel: fax: Referral ID Status Reason Start Date Expiration Date Visits Re quested Visits Authorized [id number] Closed 04/21/2022 05/21/2023 1 1 Encounter Details Date Type Department Care Team (Late st Contact Info) Description 09/09/2015 Hospital Encounter [facility] Radiology [facility] [address] [place] [phone] Social History Tobacco Use Types Packs/Day Years Used Date Smoking Tobacco: Never Assessed Comments Unknown Sex and Gender Information Value Date Recorded Sex Assigned at Not on file 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 Gender Identity Not on file Sexual Orientation Not on file documented as of this encounter Plan of Treatment Not on file documented as of this encounter Procedures Procedure Name Priority Date/Time Associated Diagnosis Comments BREAST IMAGING MG SCREENING OUTSIDE REFERENCE Routine 09/09/2015 12:00 AM CDT documented in this encounter Results * Breast Imaging Screening Outside Reference (09/09/2015 12:00 AM CDT) Impressions [facility] - 04/21/2022 1:12 PM CDT These images are for Reference purposes only and have not been reviewed by [facility] Rad[facility]. There will be no report generated by a [facility] Radiologist. Narrative RAD_MAMMO_[facility] - 04/21/2022 1:12 PM CDT EXAMINATION: Images For Reference Purposes Only us Meli Farley MD IMG MAMMO PROCEDURES Final Resu lt RAD_MAMMO_[facility] documented in this encounter Visit Diagnoses Not on filedocumented in this encounter
--- OUTSIDE RECORDS SUMMARY | 2024-08-04 13:35 | XMS_ITS | Encounter Summary ---
Author Organization [facility] Healthcare Address [address] [place] [address] Care Team Providers Care Admissions Representative Name Role Phone Unavailable Primary Care Provider Unavailabl e Reason for Visit * Diagnostic Imaging (Routine) - Closed Specialty Diagnoses / Procedures Referred By Contac t Referred To Contact Procedures Breast Imaging Screening Outside Reference Meli Farley MD Phone: tel: fax: Referral ID Status Reason Start Date Expiration Date Visits Re quested Visits Authorized [id number] Closed 04/21/2022 05/21/2023 1 1 Encounter Details Date Type Department Care Team (Late st Contact Info) Description 03/07/[address] 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 There will be no report generated by a [facility] Radiologist. Narrative RAD_MAMMO_[facility] - 04/21/2022 1:06 PM CDT EXAMINATION: Images For Reference Purposes Only us Meli Farley MD IMG MAMMO PROCEDURES Final Resu lt RAD_MAMMO_[facility] documented in this encounter Visit Diagnoses Not on filedocumented in this encounter
--- OUTSIDE RECORDS SUMMARY | 2024-08-04 13:36 | XMS_ITS | Encounter Summary ---
Author Organization [facility] Healthcare Address [address] [place] [address] Care Team Providers Care Brand Marketing Intern Name Role Phone Unavailable Primary Care Provider Unavailabl e Reason for Visit * Diagnostic Imaging (Routine) - Closed Specialty Diagnoses / Procedures Referred By Contac t Referred To Contact Procedures Breast Imaging Screening Outside Reference Meli Farley MD Phone: tel: fax: Referral ID Status Reason Start Date Expiration Date Visits Re quested Visits Authorized [id number] Closed 04/21/2022 05/21/2023 1 1 Encounter Details Date Type Department Care Team (Late st Contact Info) Description 02/02/2020 Hospital Encounter [facility] [address] [place] [phone] Social History Tobacco Use Types Packs/Day Years Used Date Smoking Tobacco: Never Assessed Comments Unknown Sex and Gender Information Value Date Recorded Sex Assigned at Not on file 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 There will be no report generated by a [facility] Radiologist. Narrative RAD_MAMMO_[facility] - 04/21/2022 1:14 PM CDT EXAMINATION: Images For Reference Purposes Only us Meli Farley MD IMG MAMMO PROCEDURES Final Resu lt RAD_MAMMO_[facility] documented in this encounter Visit Diagnoses Not on filedocumented in this encounter
--- OUTSIDE RECORDS SUMMARY | 2024-08-04 13:36 | XMS_ITS | Encounter Summary ---
Author Organization [facility] Healthcare Address [address] [place] [address] Care Team Providers Care Steel Handler Name Role Phone Unavailable Primary Care Provider Unavailabl e Reason for Visit * Diagnostic Imaging (Routine) - Closed Specialty Diagnoses / Procedures Referred By Contac t Referred To Contact Procedures Breast Imaging Screening Outside Reference Meli Farley MD Phone: tel: fax: Referral ID Status Reason Start Date Expiration Date Visits Re quested Visits Authorized [id number] Closed 04/21/2022 05/21/2023 1 1 Encounter Details Date Type Department Care Team (Late st Contact Info) Description 12/31/2017 Hospital Encounter [facility] Radiology [facility] [address] [place] [phone] Social History Tobacco Use Types Packs/Day Years Used Date Smoking Tobacco: Never Assessed Comments Unknown Sex and Gender Information Value Date Recorded Sex Assigned at Not on file 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 There will be no report generated by a [facility] Radiologist. Narrative RAD_MAMMO_[facility] - 04/21/2022 1:13 PM CDT EXAMINATION: Images For Reference Purposes Only us Meli Farley MD IMG MAMMO PROCEDURES Final Resu lt RAD_MAMMO_[facility] documented in this encounter Visit Diagnoses Not on filedocumented in this encounter
--- OUTSIDE RECORDS SUMMARY | 2024-08-04 13:36 | XMS_ITS | Clinical Summary ---
Author Organization [facility] [employer] Address [address] [place] [address] Care Team Providers Care Radio Station Manager Name Role Phone Unavailable Primary Care Provider Unavailabl e Source Comments [facility] [employer],non-owned Affiliates and Associated Physician Practices is amultiple site organization consisting of ambulatory clinics and hospital sitesin [place], [place], [place] and [place]. This disclosure is being madepursuant to the Care Everywhere program and may not contain all information available regarding this patient. Last updated 18.[facility] [employer] Social History Tobacco Use Types Packs/Day Years Used Date Smoking Tobacco: Never Assessed Sex and Gender Information Value Date Recorded Sex Assigned at Not on file Gender Identity Not on file Sexual Orientation Not on file Plan of Treatment Health Maintenance Due Date Last Done Comments COLOGUARD (AGES 45-75) - COL ON CA SCREENING 1960 COLON MONITORING 1960 COLONOSCOPY - COLON CA SCREENING 1960 CT COLONOGRAPHY - COLON CA SCREENING 1960 Colorectal Cancer Screening 1960 FIT - COLON CA SCREENING 1960 FLEX SIG - COLON CA SCREENING 1960 LIPID TESTING 1960 MAMMOGRAM 1960 PAP SMEAR 1960 HIV SCREENING 12/29/1975 HEPATITIS C SCREENING 12/24/1978 DTAP/TDAP/TD VACCINES (1 - Tdap) 12/29/1979 PNEUMOCOCCAL VACCINE 50+ (1 of 1 - PCV) 2010 ZOSTER VACCINE (1 of 2) 2010 COVID-19 VACCINE ( - 2023-2 5 season) 2024 INFLUENZA VACCINE (#1) 2024 DEPRESSION SCREENING 06/18/2024 Respiratory Syncytial Virus (RSV) Vaccine Pt: or over 60 yrs (1 - 1-dose 75+ series) 12/29/2035 HEPATITIS B VACCINE Aged Out No longe r eligible based on patient's age to complete this topic HIB VACCINE Aged Out No longer eligi ble based on patient's age to complete this topic HPV VACCINE Aged Out No longer eligi ble based on patient's age to complete this topic MENINGOCOCCAL (Group B) VACCINE Aged Out No longer eligible based on patient's age to complete this topic MENINGOCOCCAL VACCINE Aged Out No arnoldo padmini eligible based on patient's age to complete this topic PNEUMOCOCCAL VACCINE Aged Out No long er eligible based on patient's age to complete this topic
--- OUTSIDE RECORDS SUMMARY | 2024-08-04 13:36 | XMS_ITS | Clinical Summary ---
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 Gender Identity Not on file Sexual Orientation Not on file Obstetrics History Plan of Treatment Health Maintenance Due Date Last Done Comments Breast Cancer Screening-Mammogram 1960 Cervical Cancer Screening 1960 Colon Cancer Screening-Colonoscopy 1960 Depression Screening 1960 Hepatitis C Screening 1960 DTaP/Tdap/Td Vaccine (1 - Tdap) 12/29/1971 Hepatitis B Screening 1978 Regular Well Visit/Exam 18-64 1978 Zoster Vaccine (1 of 2) 2010 Influenza Vaccine (#1) 2024 Pneumococcal vaccine <65 Aged Out No longer eligible based on patient's age to complete this topic Insurance [employer] 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 Member Subscriber Plan / Payer (Ef fective 2021-Present) Name:Becky Foley Relation to Subscriber:Spouse Name:DILLON FOLEY Date of :1961 (Home) Address: [facility] [place] [address] Payer ID:[id number] (NAIC) Group ID:[id number] Type:[employer] Address: [address] CLAIMS [facility] [place] [address] [facility] FEDERAL Member Subscriber Plan / Payer (Ef fective 2021-Present) Name:Becky Foley Relation to Subscriber:Spouse Name:OGDILLON Date of :1961 (Home) Address: [facility] [place] [address] Payer ID:[id number] (NAIC) Group ID:[id number] Type:[employer] Address: [address] CLAIMS Care Teams Customer Resolution Specialist Relationship Specialty Start Date End Date Meli Farley MD PCP - General Family Medicine 05/02/22
--- OUTSIDE RECORDS SUMMARY | 2024-08-04 13:36 | XMS_ITS | Referral Summary ---
Author Organization [facility] Address [address] [place] [address] Care Team Providers Care Testing Tech Name Role Phone Unavailable Primary Care Provider Unavailabl e Source Comments [facility],non-owned Affiliates and Associated Physician Practices is amultiple site organization consisting of ambulatory clinics and hospital sitesin [place], [place], [place] and [place]. This disclosure is being madepursuant to the Care Everywhere program and may not contain all information available regarding this patient. Last updated 18.[facility] [employer] Social History Tobacco Use Types Packs/Day Years Used Date Smoking Tobacco: Never Assessed Sex and Gender Information Value Date Recorded Sex Assigned at Not on file Gender Identity Not on file Sexual Orientation Not on file Plan of Treatment Not on file
== END 2024-08-04 10:29 | disposition home or self-care (01) ==
LOC: ANHLAB 10:29
PROVIDERS: PCP Family Medicine; Visit Provider Student in an Organized Health Care Education/Training Program
DX: E78.5 Hyperlipidemia, unspecified (principal); Z68.39 Body mass index [BMI] 39.0-39.9, adult; R53.83 Other fatigue; R63.5 Abnormal weight gain
CPT/HCPCS: 36415; 80053; 80061; 83036; 84439; 84443; 85025

== ENCOUNTER 2024-08-08 09:04 | Outpatient (CLI) | payer BC, OTHER, SELFPAY ==
[2024-08-08 09:31] LABS: Basophils Absolute Auto 0.1 K/mm3 (0.0-0.1); Basophils Percent Auto 0.7 % (0.2-1.2); Eosinophils Absolute Auto 0.1 K/mm3 (0-0.3); Eosinophils Percent Auto 1.6 % (0-4.4); Hematocrit 35.1 % (37.0-47.0); Hemoglobin 10.6 g/dL (12.0-15.0); Immature Granulocyte Absolute 0.01 K/mm3 (0.00-0.031); Immature Granulocyte Percent A 0.1 % (0-0.5); Lymphocytes Absolute Auto 2.92 K/mm3 (0.9-3.2); Lymphocytes Percent Auto 41.7 % (18.3-44.2); Mean Corpuscular HGB Conc 30.2 g/dl (32-36); Mean Corpuscular Hemoglobin 27.2 pg (26-34); Mean Platelet Volume 10.6 fl (7.4-10.4); Monocytes Absolute Auto 0.5 K/mm3 (0.1-0.6); Monocytes Percent Auto 6.4 % (2.6-8.5); Neutrophils Absolute Auto 3.5 K/mm3 (1.3-6.7); Neutrophils Percent Auto 49.5 % (45.5-73.1); Platelet Count Result 167 k/mm3 (150-375); Red Cell Distribution Width 15.6 % (11.5-14.5)
--- OUTSIDE RECORDS SUMMARY | 2024-08-08 09:48 | XMS_ITS | Encounter Summary ---
Author Organization [facility] Healthcare Address [address] [place] [address] Care Team Providers Care Drawstring Knotter Name Role Phone Unavailable Primary Care Provider Unavailabl e Reason for Visit * Diagnostic Imaging (Routine) - Closed Specialty Diagnoses / Procedures Referred By Contac t Referred To Contact Procedures Breast Imaging Screening Outside Reference Meli Farley MD Phone: tel: fax: Referral ID Status Reason Start Date Expiration Date Visits Re quested Visits Authorized [id number] Closed 04/21/2022 05/21/2023 1 1 Encounter Details Date Type Department Care Team (Late st Contact Info) Description 12/31/2017 Hospital Encounter [facility] [address] [place] [address] Social History Tobacco Use Types Packs/Day Years Used Date Smoking Tobacco: Never Assessed Comments Unknown Sex and Gender Information Value Date Recorded Sex Assigned at Not on file 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 Radiology. There will be no report generated by a [facility] Radiologist. Narrative RAD_MAMMO_[facility] - 04/21/2022 1:13 PM CDT EXAMINATION: Images For Reference Purposes Only us Meli Farley MD IMG MAMMO PROCEDURES Final Resu lt RAD_MAMMO_[facility] documented in this encounter Visit Diagnoses Not on filedocumented in this encounter
--- OUTSIDE RECORDS SUMMARY | 2024-08-08 09:48 | XMS_ITS | Patient Health Summary ---
Author Organization [facility] Address [address] [place] [address] Care Team Providers Care Cv/Cvn Cv Tsc System Operator Name Role Phone Unavailable Primary Care Provider Unavailabl e Note from [facility],non-owned Affiliates and Associated Physician Practices is amultiple site organization consisting of ambulatory clinics and hospital sitesin [place], [place], [place] and [place]. This disclosure is being madepursuant to the Care Everywhere program and may not contain all information available regarding this patient. Last updated 18.[facility] Social History Tobacco Use Types Packs/Day Years Used Date Smoking Tobacco: Never Assessed Sex and Gender Information Value Date Recorded Sex Assigned at Not on file Gender Identity Not on file Sexual Orientation Not on file Procedures * GROSS + MICRO EXAM(Performed 04/29/2007) Results * GROSS + MICRO EXAM (04/29/2007 8:55 AM SALES SUPPORT CONSULTANT) Result CASE NUMBER [id number] Comment: ORDERING [...] ovary and tube are four fragments of [id number], rubbery fragments aggregating to 4 x 4 [...] to a portion of ovarian tissue. A customer account representative portion is submitted. Cassette summary A1 [...] what appears to be ovarian tissue. A customer account representative portion is submitted in cassettes B1 [...] MISCELLANEOUS SAMPLES / Unknown 04/29/2007 8:55 AM SALES SUPPORT CONSULTANT 04/29/2007 12:19 PM SALES SUPPORT CONSULTANT Historical Provider LAB - PATHOLOGY/C YTOLOGY ORDERABLES
--- OUTSIDE RECORDS SUMMARY | 2024-08-08 09:48 | XMS_ITS | Encounter Summary ---
Author Organization [facility] Healthcare Address [address] [place] [address] Care Team Providers Care Green Inspector Name Role Phone Unavailable Primary Care Provider Unavailabl e Reason for Visit * Diagnostic Imaging (Routine) - Closed Specialty Diagnoses / Procedures Referred By Contac t Referred To Contact Procedures Breast Imaging Diagnostic Outside Reference Meli Farley MD Phone: tel: fax: Referral ID Status Reason Start Date Expiration Date Visits Re quested Visits Authorized [id number] Closed 04/21/2022 05/21/2023 1 1 Encounter Details Date Type Department Care Team (Late st Contact Info) Description 08/06/2014 Hospital Encounter [facility] [address] [place] [address] Social History Tobacco Use Types Packs/Day Years Used Date Smoking Tobacco: Never Assessed Comments Unknown Sex and Gender Information Value Date Recorded Sex Assigned at Not on file Legal Sex Female 6:26 PM YOGHURT MAKER Gender Identity Not on file Sexual Orientation Not on file documented as of this encounter Plan of Treatment Not on file documented as of this encounter Procedures Procedure Name Priority Date/Time Associated Diagnosis Comments BREAST IMAGING MG DIAGNOSTIC OUTSIDE REFERENCE Routine 08/06/2014 12:00 AM YOGHURT MAKER documented in this encounter Results * Breast Imaging Diagnostic Outside Reference (08/06/2014 12:00 AM YOGHURT MAKER) Impressions RAD_MAMMO_[facility] - 04/21/2022 1:12 PM CDT These images are for Reference purposes only and have not been reviewed by [facility] Radiology. There will be no report generated by a [facility] Radiologist. Narrative RAD_MAMMO_[facility] - 04/21/2022 1:12 PM CDT EXAMINATION: Images For Reference Purposes Only us Meli Farley MD IMG MAMMO PROCEDURES Final Resu lt RAD_MAMMO_[facility] documented in this encounter Visit Diagnoses Not on filedocumented in this encounter
--- OUTSIDE RECORDS SUMMARY | 2024-08-08 09:48 | XMS_ITS | Referral Summary ---
Author Organization [facility] Address [address] [place] [address] Care Team Providers Care Supervisor Vacuum Metalizing Name Role Phone Unavailable Primary Care Provider Unavailabl e Source Comments [facility],non-owned Affiliates and Associated Physician Practices is amultiple site organization consisting of ambulatory clinics and hospital sitesin [place], [place], [place] and [place]. This disclosure is being madepursuant to the Care Everywhere program and may not contain all information available regarding this patient. Last updated 18.[facility] [employer] Social History Tobacco Use Types Packs/Day Years Used Date Smoking Tobacco: Never Assessed Sex and Gender Information Value Date Recorded Sex Assigned at Not on file Gender Identity Not on file Sexual Orientation Not on file Plan of Treatment Not on file
--- OUTSIDE RECORDS SUMMARY | 2024-08-08 09:48 | XMS_ITS | Encounter Summary ---
Author Organization [facility] Healthcare Address [address] [place] [address] Care Team Providers Care Steward/Stewardess Dining Room Name Role Phone Unavailable Primary Care Provider Unavailabl e Reason for Visit * Diagnostic Imaging (Routine) - Closed Specialty Diagnoses / Procedures Referred By Contac t Referred To Contact Procedures Breast Imaging Diagnostic Outside Reference Meli Farley MD Phone: tel: fax: Referral ID Status Reason Start Date Expiration Date Visits Re quested Visits Authorized [id number] Closed 04/21/2022 05/21/2023 1 1 Encounter Details Date Type Department Care Team (Late st Contact Info) Description 09/22/2015 Hospital Encounter [facility]iology [facility] [address] [place] [address] Social History Tobacco Use Types Packs/Day Years Used Date Smoking Tobacco: Never Assessed Comments Unknown Sex and Gender Information Value Date Recorded Sex Assigned at Not on file 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 There will be no report generated by a [facility] Radiologist. Narrative RAD_MAMMO_[facility] - 04/21/2022 1:13 PM CDT EXAMINATION: Images For Reference Purposes Only us Meli Farley MD IMG MAMMO PROCEDURES Final Resu lt [facility]_MAMMO_[facility] documented in this encounter Visit Diagnoses Not on filedocumented in this encounter
--- OUTSIDE RECORDS SUMMARY | 2024-08-08 09:48 | XMS_ITS | Clinical Summary ---
Author Organization [facility] Address [address] [place] [address] Care Team Providers Care Recycling Worker Name Role Phone Unavailable Primary Care Provider Unavailabl e Source Comments [facility],non-owned Affiliates and Associated Physician Practices is amultiple site organization consisting of ambulatory clinics and hospital sitesin [place], [place], [place] and [place]. This disclosure is being madepursuant to the Care Everywhere program and may not contain all information available regarding this patient. Last updated 18.[facility] Social History Tobacco Use Types Packs/Day Years [...]
--- OUTSIDE RECORDS SUMMARY | 2024-08-08 09:48 | XMS_ITS | Clinical Summary ---
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 Gender Identity Not on file Sexual Orientation [...] Name:DILLON FOLEY Date of :1961 (Home) Address: [facility] [place] [address] Payer ID:[id number] (NAIC) Group ID:[id number] Type:[employer]te[employer] Address: [address] CLAIMS [facility] [place] [address] [facility] FEDERAL Member Subscriber Plan / Payer (Ef fective 2021-Present) Name:Becky Foley Relation to Subscriber:Spouse Name:OGDILLON Date of :1961 (Home) Address: [facility] [place] [address] Payer ID:[id number] (NAIC) Group ID:[id number] Type:Debteye Address: [address] CLAIMS Care Teams Car Shifter Relationship Specialty Start Date End Date Meli Farley MD PCP - General Family Medicine 05/02/22
--- OUTSIDE RECORDS SUMMARY | 2024-08-08 09:48 | XMS_ITS | Encounter Summary ---
Author Organization [facility] Healthcare Address [address] [place] [address] Care Team Providers Care Stem Teacher Name Role Phone Unavailable Primary Care Provider Unavailabl e Reason for Visit * Diagnostic Imaging (Routine) - Closed Specialty Diagnoses / Procedures Referred By Contac t Referred To Contact Procedures Breast Imaging Screening Outside Reference Meli Farley MD Phone: tel: fax: Referral ID Status Reason Start Date Expiration Date Visits Re quested Visits Authorized [id number] Closed 04/21/2022 05/21/2023 1 1 Encounter Details Date Type Department Care Team (Late st Contact Info) Description 08/03/2014 Hospital Encounter [facility] Radiology [facility] [address] [place] [address] Social History Tobacco Use Types Packs/Day Years Used Date Smoking Tobacco: Never Assessed Comments Unknown Sex and Gender Information Value Date Recorded Sex Assigned at Not on file 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 Sex Female 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 Gender Identity Not on file Sexual Orientation Not on file documented as of this encounter Plan of Treatment Not on file documented as of this encounter Procedures Procedure Name Priority Date/Time Associated Diagnosis Comments BREAST IMAGING MG SCREENING OUTSIDE REFERENCE Routine 08/03/2014 12:00 AM 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 TOWER CLIMBER documented in this encounter Results * Breast Imaging Screening Outside Reference (08/03/2014 12:00 AM 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 TOWER CLIMBER) Impressions RAD_MAMMO_[facility] - 04/21/2022 1:09 PM CDT These images are for Reference purposes only and have not been reviewed by [facility] Radiology. There will be no report generated by a [facility] Radiologist. Narrative RAD_MAMMO_[facility] - 04/21/2022 1:09 PM CDT EXAMINATION: Images For Reference Purposes Only us Meli Farley MD IMG MAMMO PROCEDURES Final Resu lt [facility]_MAMMO_[facility] documented in this encounter Visit Diagnoses Not on filedocumented in this encounter
--- OUTSIDE RECORDS SUMMARY | 2024-08-08 09:48 | XMS_ITS | Encounter Summary ---
Author Organization [facility] Healthcare Address [address] [place] [address] Care Team Providers Care Inspector Integrated Circuits Name Role Phone Unavailable Primary Care Provider Unavailabl e Reason for Visit * Diagnostic Imaging (Routine) - Closed Specialty Diagnoses / Procedures Referred By Contac t Referred To Contact Procedures Breast Imaging Screening Outside Reference Meli Farley MD Phone: tel: fax: Referral ID Status Reason Start Date Expiration Date Visits Re quested Visits Authorized [id number] Closed 04/21/2022 05/21/2023 1 1 Encounter Details Date Type Department Care Team (Late st Contact Info) Description 03/07/[address] 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 There will be no report generated by a [facility] Radiologist. Narrative RAD_MAMMO_[facility] - 04/21/2022 1:06 PM CDT EXAMINATION: Images For Reference Purposes Only us Meli Farley MD IMG MAMMO PROCEDURES Final Resu lt [facility]_MAMMO[facility] documented in this encounter Visit Diagnoses Not on filedocumented in this encounter
--- OUTSIDE RECORDS SUMMARY | 2024-08-08 09:48 | XMS_ITS | Encounter Summary ---
Author Organization [facility] Healthcare Address [address] [place] [address] Care Team Providers Care Educational Technologist Name Role Phone Unavailable Primary Care Provider Unavailabl e Reason for Visit * Diagnostic Imaging (Routine) - Closed Specialty Diagnoses / Procedures Referred By Contac t Referred To Contact Procedures Breast Imaging US Outside Reference Meli Farley MD Phone: tel: fax: Referral ID Status Reason Start Date Expiration Date Visits Re quested Visits Authorized [id number] Closed 04/21/2022 05/21/2023 1 1 Encounter Details Date Type Department Care Team (Late st Contact Info) Description 09/22/2015 12:05 AM CDT Hospital Encounter [facility]iology [facility] [address] [place] [address] Social History Tobacco Use Types Packs/Day Years Used Date Smoking Tobacco: Never Assessed Comments Unknown Sex and Gender Information Value Date Recorded Sex Assigned at Not on file Legal Sex Female 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 There will be no report generated by a [facility] Radiologist. Narrative RAD_MAMMO_[facility] - 04/21/2022 1:13 PM CDT EXAMINATION: Images For Reference Purposes Only us Meli Farley MD IMG MAMMO PROCEDURES Final Resu lt RAD_MAMMO[facility] documented in this encounter Visit Diagnoses Not on filedocumented in this encounter
--- OUTSIDE RECORDS SUMMARY | 2024-08-08 09:48 | XMS_ITS | Encounter Summary ---
Author Organization [facility] Healthcare Address [address] [place] [address] Care Team Providers Care Bulk Mail Clerk Name Role Phone Unavailable Primary Care Provider Unavailabl e Reason for Visit * Diagnostic Imaging (Routine) - Closed Specialty Diagnoses / Procedures Referred By Contac t Referred To Contact Procedures Breast Imaging Screening Outside Reference Meli Farley MD Phone: tel: fax: Referral ID Status Reason Start Date Expiration Date Visits Re quested Visits Authorized [id number] Closed 04/21/2022 05/21/2023 1 1 Encounter Details Date Type Department Care Team (Late st Contact Info) Description 09/28/2016 Hospital Encounter [facility] Radiology [facility] [address] [place] [address] Social History Tobacco Use Types Packs/Day Years Used Date Smoking Tobacco: Never Assessed Comments Unknown Sex and Gender Information Value Date Recorded Sex Assigned at Not on file 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 There will be no report generated by a [facility] Radiologist. Narrative RAD_MAMMO_[facility] - 04/21/2022 1:13 PM CDT EXAMINATION: Images For Reference Purposes Only us Meli Farley MD IMG MAMMO PROCEDURES Final Resu lt RAD_MAMMO[facility] documented in this encounter Visit Diagnoses Not on filedocumented in this encounter
--- OUTSIDE RECORDS SUMMARY | 2024-08-08 09:48 | XMS_ITS | Encounter Summary ---
Author Organization [facility] Healthcare Address [address] [place] [address] Care Team Providers Care Auto Radiator Mechanic Name Role Phone Unavailable Primary Care Provider Unavailabl e Reason for Visit * Diagnostic Imaging (Routine) - Closed Specialty Diagnoses / Procedures Referred By Contac t Referred To Contact Procedures Breast Imaging Screening Outside Reference Meli Farley MD Phone: tel: fax: Referral ID Status Reason Start Date Expiration Date Visits Re quested Visits Authorized [id number] Closed 04/21/2022 05/21/2023 1 1 Encounter Details Date Type Department Care Team (Late st Contact Info) Description 02/02/2020 Hospital Encounter [facility] Radiology [facility] [address] [place] [address] Social History Tobacco Use Types Packs/Day Years Used Date Smoking Tobacco: Never Assessed Comments Unknown Sex and Gender Information Value Date Recorded Sex Assigned at Not on file Legal Sex Female 6:26 PM MANAGER PLAN Gender Identity Not on file Sexual Orientation Not on file documented as of this encounter Plan of Treatment Not on file documented as of this encounter Procedures Procedure Name Priority Date/Time Associated Diagnosis Comments BREAST IMAGING MG SCREENING OUTSIDE REFERENCE Routine 02/02/2020 12:00 AM CDT documented in this encounter Results * Breast Imaging Screening Outside Reference (02/02/2020 12:00 AM CDT) Impressions RAD_MAMMO_[facility] - 04/21/2022 1:14 PM CDT These images are for Reference purposes only and have not been reviewed by [facility] Radiology. There will be no report generated by a [facility] Radiologist. Narrative RAD_MAMMO_[facility] - 04/21/2022 1:14 PM CDT EXAMINATION: Images For Reference Purposes Only us Meli Farley MD IMG MAMMO PROCEDURES Final Resu lt [facility]_M[facility]MO[facility] documented in this encounter Visit Diagnoses Not on filedocumented in this encounter
--- OUTSIDE RECORDS SUMMARY | 2024-08-08 09:48 | XMS_ITS | Referral Summary ---
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 CLAIMS [facility] FEDERAL Member Subscriber Plan / Payer (Ef fective 2021-Present) Name:Becky Foley Relation to Subscriber:Spouse Name:DILLON FOLEY Date of :1961 (Home) Address: [facility] [place] [address] Payer ID:[id number] (NAIC) Group ID:[id number] Type:[facility] Address: [address] Care Teams Flavoring Machine Operator Relationship Specialty Start Date End Date Meli Farley MD PCP - General Family Medicine 05/02/22
--- OUTSIDE RECORDS SUMMARY | 2024-08-08 09:48 | XMS_ITS | Encounter Summary ---
Author Organization [facility] Healthcare Address [address] [place] [address] Care Team Providers Care Boat Builder And Repairer Name Role Phone Unavailable Primary Care Provider Unavailabl e Reason for Visit * Diagnostic Imaging (Routine) - Closed Specialty Diagnoses / Procedures Referred By Contac t Referred To Contact Procedures Breast Imaging Screening Outside Reference Meli Farley MD Phone: tel: fax: Referral ID Status Reason Start Date Expiration Date Visits Re quested Visits Authorized [id number] Closed 04/21/2022 05/21/2023 1 1 Encounter Details Date Type Department Care Team (Late st Contact Info) Description 09/09/2015 Hospital Encounter [facility] [address] [place] [address] Social History Tobacco Use Types Packs/Day Years Used Date Smoking Tobacco: Never Assessed Comments Unknown Sex and Gender Information Value Date Recorded Sex Assigned at Not on file 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 - 04/21/2022 1:12 PM CDT These images are for Reference purposes only and have not been reviewed by [facility] Radiology. There will be no report generated by a [facility] Radiologist. Narrative RAD_MAMMO_[facility] - 04/21/2022 1:12 PM CDT EXAMINATION: Images For Reference Purposes Only us Meli Farley MD IMG MAMMO PROCEDURES Final Resu lt RAD_MAMMO_[facility] documented in this encounter Visit Diagnoses Not on filedocumented in this encounter
--- OUTSIDE RECORDS SUMMARY | 2024-08-08 09:48 | XMS_ITS | Encounter Summary ---
Author Organization [facility] Healthcare Address [address] [place] [address] Care Team Providers Care Operator Catalyst Concentration Name Role Phone Unavailable Primary Care Provider Unavailabl e Reason for Visit * Diagnostic Imaging (Routine) - Closed Specialty Diagnoses / Procedures Referred By Contac t Referred To Contact Procedures Breast Imaging Screening Outside Reference Meli Farley MD Phone: tel: fax: Referral ID Status Reason Start Date Expiration Date Visits Re quested Visits Authorized [id number] Closed 04/21/2022 05/21/2023 1 1 Encounter Details Date Type Department Care Team (Late st Contact Info) Description 04/23/2013 Hospital Encounter [facility]iology [facility] [address] [place] [phone] Social History Tobacco Use Types Packs/Day Years Used Date Smoking Tobacco: Never Assessed Comments Unknown Sex and Gender Information Value Date Recorded Sex Assigned at Not on file Legal Sex Female 6:26 PM FAMILY DEVELOPMENT SPECIALIST Gender Identity Not on file Sexual Orientation Not on file documented as of this encounter Plan of Treatment Not on file documented as of this encounter Procedures Procedure Name Priority Date/Time Associated Diagnosis Comments BREAST IMAGING MG SCREENING OUTSIDE REFERENCE Routine 04/23/2013 12:00 AM FAMILY DEVELOPMENT SPECIALIST documented in this encounter Results * Breast Imaging Screening Outside Reference (04/23/2013 12:00 AM FAMILY DEVELOPMENT SPECIALIST) Impressions RAD_MAMMO_[facility] - 04/21/2022 1:06 PM CDT These images are for Reference purposes only and have not been reviewed by [facility] Radiology. There will be no report generated by a [facility] Radiologist. Narrative RAD_MAMMO_[facility] - 04/21/2022 1:06 PM CDT EXAMINATION: Images For Reference Purposes Only us Meli Farley MD IMG MAMMO PROCEDURES Final Resu lt RAD_MAMMO_[facility] documented in this encounter Visit Diagnoses Not on filedocumented in this encounter
[2024-08-08 10:51] LABS: Folic Acid 11.2 ng/mL (2.76->20)
[2024-08-08 22:16] LABS: Iron 46 ug/dL (37-170)
[2024-08-08 22:26] LABS: Percent Iron Saturation 11 % (20-50)
== END 2024-08-08 09:05 | disposition home or self-care (01) ==
LOC: ANHLAB 09:05
PROVIDERS: PCP Family Medicine; Visit Provider Student in an Organized Health Care Education/Training Program
DX: D64.9 Anemia, unspecified (principal)
CPT/HCPCS: 36415; 82607; 82728; 82746; 83540; 83550; 85025; 85055

== ENCOUNTER 2024-10-10 07:58 | Outpatient (CLI) | payer BC, OTHER, SELFPAY ==
--- OUTSIDE RECORDS SUMMARY | 2024-10-10 08:03 | XMS_ITS | Encounter Summary ---
Author Organization [facility] Healthcare Address [address] [place] [address] Care Team Providers Care Brick Shader Name Role Phone Unavailable Primary Care Provider Unavailabl e Reason for Visit * Diagnostic Imaging (Routine) - Closed Specialty Diagnoses / Procedures Referred By Contac t Referred To Contact Procedures Breast Imaging US Outside Reference Meli Farley MD Phone: tel: fax: Referral ID Status Reason Start Date Expiration Date Visits Re quested Visits Authorized [id number] Closed 04/21/2022 05/21/2023 1 1 Encounter Details Date Type Department Care Team (Late st Contact Info) Description 09/22/2015 12:05 AM CDT Hospital Encounter [facility] Radiology [facility] [address] [place] [address] Social History Tobacco Use Types Packs/Day Years Used Date Smoking Tobacco: Never Assessed Comments Unknown Sex and Gender Information Value Date Recorded Sex Assigned at Not on file 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 There will be no report generated by a [facility] Radiologist. Narrative RAD_MAMMO_[facility] - 04/21/2022 1:13 PM CDT EXAMINATION: Images For Reference Purposes Only us Meli Farley MD IMG MAMMO PROCEDURES Final Resu lt RAD_MAMMO_[facility] documented in this encounter Visit Diagnoses Not on filedocumented in this encounter
--- OUTSIDE RECORDS SUMMARY | 2024-10-10 08:03 | XMS_ITS | Referral Summary ---
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 Gender Identity Not on file Sexual Orientation Not on file Plan of Treatment Not on file Insurance [facility] [employer] Member Subscriber Plan / Payer (Ef fective 2021-Present) Name:Becky Foley Relation to Subscriber:Spouse Name:DILLON FOLEY Date of :1961 (Home) Address: [address] [place] [id number] Payer ID:[id number] (NAIC) Group ID:[id number] Type:[facility] Address: [facility] [id number] [place] [id number] [facility] CLAIMS [facility] [employer] Member Subscriber Plan / Payer (Ef fective 2021-Present) Name:Becky Foley Relation to Subscriber:Spouse Name:DILLON FOLEY Date of :1961 (Home) Address: [facility] [place] [address] Payer ID:[id number] (NAIC) Group ID:[id number] Type:[facility] Address: [address] Care Teams House Mother Relationship Specialty Start Date End Date Meli Farley MD PCP - General Family Medicine 05/02/22
--- OUTSIDE RECORDS SUMMARY | 2024-10-10 08:03 | XMS_ITS | Clinical Summary ---
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 Gender Identity Not on file Sexual Orientation [...] Date of :1961 (Home) Address: [facility] [place] [address] Payer ID:[id number] (NAIC) Group ID:[id number] Type:[facility] Address: [id number] CLAIMS [facility] [place] [address] [facility] FEDERAL Member Subscriber Plan / Payer (Ef fective 2021-Present) Name:Becky Foley Relation to Subscriber:Spouse Name:OGDILLON Date of :1961 (Home) Address: [facility] [place] [address] Payer ID:[id number] (NAIC) Group ID:[id number] Type:[facility] [employer] Address: [address] CLAIMS Care Teams Meteorological Equipment Repairer Relationship Specialty Start Date End Date Meli Farley MD PCP - General Family Medicine 05/02/22
--- OUTSIDE RECORDS SUMMARY | 2024-10-10 08:03 | XMS_ITS | Encounter Summary ---
Author Organization [facility] Healthcare Address [address] [place] [address] Care Team Providers Care Insulator Technician Name Role Phone Unavailable Primary Care Provider Unavailabl e Reason for Visit * Diagnostic Imaging (Routine) - Closed Specialty Diagnoses / Procedures Referred By Contac t Referred To Contact Procedures Breast Imaging Diagnostic Outside Reference Meli Farley MD Phone: tel: fax: Referral ID Status Reason Start Date Expiration Date Visits Re quested Visits Authorized [id number] Closed 04/21/2022 05/21/2023 1 1 Encounter Details Date Type Department Care Team (Late st Contact Info) Description 08/06/2014 Hospital Encounter [facility] Radiology [facility] [address] [place] [id number] Social History Tobacco Use Types Packs/Day Years Used Date Smoking Tobacco: Never Assessed Comments Unknown Sex and Gender Information Value Date Recorded Sex Assigned at Not on file 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 Gender Identity Not on file Sexual Orientation Not on file documented as of this encounter Plan of Treatment Not on file documented as of this encounter Procedures Procedure Name Priority Date/Time Associated Diagnosis Comments BREAST IMAGING MG DIAGNOSTIC OUTSIDE REFERENCE Routine 08/06/2014 12:00 AM GREEN CHAIN OFFBEARER documented in this encounter Results * Breast Imaging Diagnostic Outside Reference (08/06/2014 12:00 AM GREEN CHAIN OFFBEARER) Impressions RAD_MAMMO_[facility] - 04/21/2022 1:12 PM CDT These images are for Reference purposes only and have not been reviewed by [facility] Radiology. There will be no report generated by a [facility] Radiologist. Narrative RAD_MAMMO_[facility] - 04/21/2022 1:12 PM CDT EXAMINATION: Images For Reference Purposes Only us Meli Farley MD IMG MAMMO PROCEDURES Final Resu lt RAD_MAMMO_[facility] documented in this encounter Visit Diagnoses Not on filedocumented in this encounter
--- OUTSIDE RECORDS SUMMARY | 2024-10-10 08:03 | XMS_ITS | Encounter Summary ---
Author Organization [facility] Healthcare Address [address] [place] [address] Care Team Providers Care Meat Molder Name Role Phone Unavailable Primary Care Provider Unavailabl e Reason for Visit * Diagnostic Imaging (Routine) - Closed Specialty Diagnoses / Procedures Referred By Contac t Referred To Contact Procedures Breast Imaging Screening Outside Reference Meli Farley MD Phone: tel: fax: Referral ID Status Reason Start Date Expiration Date Visits Re quested Visits Authorized [id number] Closed 04/21/2022 05/21/2023 1 1 Encounter Details Date Type Department Care Team (Late st Contact Info) Description 09/09/2015 Hospital Encounter [facility] Radiology [facility] [address] [place] [address] Social History Tobacco Use Types Packs/Day Years Used Date Smoking Tobacco: Never Assessed Comments Unknown Sex and Gender Information Value Date Recorded Sex Assigned at Not on file 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
--- OUTSIDE RECORDS SUMMARY | 2024-10-10 08:03 | XMS_ITS | Encounter Summary ---
Author Organization [facility] Healthcare Address [address] [place] [address] Care Team Providers Care Bottoming Room Inspector Name Role Phone Unavailable Primary Care Provider Unavailabl e Reason for Visit * Diagnostic Imaging (Routine) - Closed Specialty Diagnoses / Procedures Referred By Contac t Referred To Contact Procedures Breast Imaging Screening Outside Reference Meli Farley MD Phone: tel: fax: Referral ID Status Reason Start Date Expiration Date Visits Re quested Visits Authorized [id number] Closed 04/21/2022 05/21/2023 1 1 Encounter Details Date Type Department Care Team (Late st Contact Info) Description 08/03/2014 Hospital Encounter [facility] Radiology [facility] [address] [place] [phone] Social History Tobacco Use Types Packs/Day Years Used Date Smoking Tobacco: Never Assessed Comments Unknown Sex and Gender Information Value Date Recorded Sex Assigned at Not on file Legal Sex Female 6:26 PM OFFICE RN Gender Identity Not on file Sexual Orientation Not on file documented as of this encounter Plan of Treatment Not on file documented as of this encounter Procedures Procedure Name Priority Date/Time Associated Diagnosis Comments BREAST IMAGING MG SCREENING OUTSIDE REFERENCE Routine 08/03/2014 12:00 AM OFFICE RN documented in this encounter Results * Breast Imaging Screening Outside Reference (08/03/2014 12:00 AM OFFICE RN) Impressions RAD_MAMMO_[facility] - 04/21/2022 1:09 PM CDT These images are for Reference purposes only and have not been reviewed by [facility] Radiology. There will be no report generated by a [facility] Radiologist. Narrative RAD_MAMMO_[facility] - 04/21/2022 1:09 PM CDT EXAMINATION: Images For Reference Purposes Only us Meli Farley MD IMG MAMMO PROCEDURES Final Resu lt RAD_MAMMO_[facility] documented in this encounter Visit Diagnoses Not on filedocumented in this encounter
--- OUTSIDE RECORDS SUMMARY | 2024-10-10 08:03 | XMS_ITS | Encounter Summary ---
Author Organization [facility] Healthcare Address [address] [place] [address] Care Team Providers Care Building Maintenance Engineer Name Role Phone Unavailable Primary Care Provider Unavailabl e Reason for Visit * Diagnostic Imaging (Routine) - Closed Specialty Diagnoses / Procedures Referred By Contac t Referred To Contact Procedures Breast Imaging Screening Outside Reference Meli Farley MD Phone: tel: fax: Referral ID Status Reason Start Date Expiration Date Visits Re quested Visits Authorized [id number] Closed 04/21/2022 05/21/2023 1 1 Encounter Details Date Type Department Care Team (Late st Contact Info) Description 03/07/2012 Hospital Encounter [facility] Radiology [facility] [address] [place] [address] Social History Tobacco Use Types Packs/Day Years Used Date Smoking Tobacco: Never Assessed Comments Unknown Sex and Gender Information Value Date Recorded Sex Assigned at Not on file 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 There will be no report generated by a [facility] Radiologist. Narrative RAD_MAMMO_[facility] - 04/21/2022 1:06 PM CDT EXAMINATION: Images For Reference Purposes Only us Meli Farley MD IMG MAMMO PROCEDURES Final Resu lt RAD_MAMMO_[facility] documented in this encounter Visit Diagnoses Not on filedocumented in this encounter
--- OUTSIDE RECORDS SUMMARY | 2024-10-10 08:03 | XMS_ITS | Encounter Summary ---
Author Organization [facility] Healthcare Address [address] [place] [address] Care Team Providers Care Refrigeration Mechanic Helper Name Role Phone Unavailable Primary Care Provider Unavailabl e Reason for Visit * Diagnostic Imaging (Routine) - Closed Specialty Diagnoses / Procedures Referred By Contac t Referred To Contact Procedures Breast Imaging Screening Outside Reference Meli Farley MD Phone: tel: fax: Referral ID Status Reason Start Date Expiration Date Visits Re quested Visits Authorized [id number] Closed 04/21/2022 05/21/2023 1 1 Encounter Details Date Type Department Care Team (Late st Contact Info) Description 04/23/2013 Hospital Encounter [facility] Radiology [facility] [address] [place] [address] Social History Tobacco Use Types Packs/Day Years Used Date Smoking Tobacco: Never Assessed Comments Unknown Sex and Gender Information Value Date Recorded Sex Assigned at Not on file 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 Gender Identity Not on file Sexual Orientation Not on file documented as of this encounter Plan of Treatment Not on file documented as of this encounter Procedures Procedure Name Priority Date/Time Associated Diagnosis Comments BREAST IMAGING MG SCREENING OUTSIDE REFERENCE Routine 04/23/2013 12:00 AM MECHANICAL PROJECT MANAGER documented in this encounter Results * Breast Imaging Screening Outside Reference (04/23/2013 12:00 AM MECHANICAL PROJECT MANAGER) Impressions RAD_MAMMO_[facility] - 04/21/2022 1:06 PM CDT These images are for Reference purposes only and have not been reviewed by [facility] Radiology. There will be no report generated by a [facility] Radiologist. Narrative RAD_MAMMO_[facility] - 04/21/2022 1:06 PM CDT EXAMINATION: Images For Reference Purposes Only us Meli Farley MD IMG MAMMO PROCEDURES Final Resu lt RAD_MAMMO_[facility] documented in this encounter Visit Diagnoses Not on filedocumented in this encounter
--- OUTSIDE RECORDS SUMMARY | 2024-10-10 08:03 | XMS_ITS | Encounter Summary ---
Author Organization [facility] Healthcare Address [address] [place] [address] Care Team Providers Care Health Insurance Specialist Name Role Phone Unavailable Primary Care Provider Unavailabl e Reason for Visit * Diagnostic Imaging (Routine) - Closed Specialty Diagnoses / Procedures Referred By Contac t Referred To Contact Procedures Breast Imaging Screening Outside Reference Meli Farley MD Phone: tel: fax: Referral ID Status Reason Start Date Expiration Date Visits Re quested Visits Authorized [id number] Closed 04/21/2022 05/21/2023 1 1 Encounter Details Date Type Department Care Team (Late st Contact Info) Description 09/28/2016 Hospital Encounter [facility] Radiology [facility] [address] [place] [address] Social History Tobacco Use Types Packs/Day Years Used Date Smoking Tobacco: Never Assessed Comments Unknown Sex and Gender Information Value Date Recorded Sex Assigned at Not on file Legal Sex Female 6:26 PM NURSE COORDINATOR Gender Identity Not on file Sexual Orientation [...] only and have not been reviewed by [facility] Radiology. There will be no report generated by a [facility] Radiologist. Narrative RAD_MAMMO_[facility] - 04/21/2022 1:13 PM CDT EXAMINATION: Images For Reference Purposes Only us Meli Farley MD IMG MAMMO PROCEDURES Final Resu lt [facility]_MAMMO_[facility] documented in this encounter Visit Diagnoses Not on filedocumented in this encounter
--- OUTSIDE RECORDS SUMMARY | 2024-10-10 08:03 | XMS_ITS | Clinical Summary ---
Author Organization [facility] Address [address] [place] [address] Care Team Providers Care Oil Laboratory Analyst Name Role Phone Unavailable Primary Care Provider Unavailabl e Source Comments [facility],non-owned Affiliates and Associated Physician Practices is amultiple site organization consisting of ambulatory clinics and hospital sitesin [place], [place], [place] and [place]. This disclosure is being madepursuant to the Care Everywhere program and may not contain all information available regarding this patient. Last updated 18.[facility] Social History Tobacco Use Types Packs/Day Years Used Date Smoking Tobacco: Never Assessed Comments Unknown Sex and Gender Information Value Date Recorded Sex Assigned at Not on file Legal Sex Female 4:50 AM PARTS CLASSIFIER Gender Identity Not on file Sexual Orientation [...] SCREENING 1960 LIPID TESTING 1960 MAMMOGRAM 1960 HIV SCREENING 12/29/1975 HEPATITIS C SCREENING 12/24/1978 DTAP/TDAP/TD VACCINES (1 - Tdap) 12/29/1979 PNEUMOCOCCAL VACCINE 50+ (1 of 1 - PCV) 2010 ZOSTER VACCINE (1 of 2) 2010 COVID-19 VACCINE ( - 2023-2 5 season) 2024 DEPRESSION SCREENING 06/18/2024 INFLUENZA VACCINE (Season Ended) 2025 Respiratory Syncytial Virus (RSV) Vaccine Pt: or [...] to complete this topic MENINGOCOCCAL (Group B) VACC INE SHARED DECISION-MAKING Aged Out No longer eligibl e based on patient's age to complete this topic MENINGOCOCCAL GROUPS A/C/Y/W VACCINE Aged Out No longer eligible b ased on patient's age to complete this topic
--- OUTSIDE RECORDS SUMMARY | 2024-10-10 08:03 | XMS_ITS | Encounter Summary ---
Author Organization [facility] Healthcare Address [address] [place] [address] Care Team Providers Care Electrical Superintendent Name Role Phone Unavailable Primary Care Provider Unavailabl e Reason for Visit * Diagnostic Imaging (Routine) - Closed Specialty Diagnoses / Procedures Referred By Contac t Referred To Contact Procedures Breast Imaging Screening Outside Reference Meli Farley MD Phone: tel: fax: Referral ID Status Reason Start Date Expiration Date Visits Re quested Visits Authorized [id number] Closed 04/21/2022 05/21/2023 1 1 Encounter Details Date Type Department Care Team (Late st Contact Info) Description 02/02/2020 Hospital Encounter [facility] Radiology [facility] [address] [place] [address] Social History Tobacco Use Types Packs/Day Years Used Date Smoking Tobacco: Never Assessed Comments Unknown Sex and Gender Information Value Date Recorded Sex Assigned at Not on file Legal Sex Female 6:26 PM SECTION GANG WORKER Gender Identity Not on file Sexual Orientation Not on file documented as of this encounter Plan of Treatment Not on file documented as of this encounter Procedures Procedure Name Priority Date/Time Associated Diagnosis Comments BREAST IMAGING MG SCREENING OUTSIDE REFERENCE Routine 02/02/2020 12:00 AM CDT documented in this encounter Results * Breast Imaging Screening Outside Reference (02/02/2020 12:00 AM CDT) Impressions RAD[facility]MAMMO_[facility] - 04/21/2022 1:14 PM CDT These images are for Reference purposes only and have not been reviewed by [facility] Radiology. There will be no report generated by a [facility] Radiologist. Narrative RAD_MAMMO_[facility] - 04/21/2022 1:14 PM CDT EXAMINATION: Images For Reference Purposes Only us Meli Farley MD IMG MAMMO PROCEDURES Final Resu lt [facility]_MAMMO_[facility] documented in this encounter Visit Diagnoses Not on filedocumented in this encounter
--- OUTSIDE RECORDS SUMMARY | 2024-10-10 08:03 | XMS_ITS | Encounter Summary ---
Author Organization [facility] Healthcare Address [address] [place] [address] Care Team Providers Care Interior Assemblies Developer Prover Name Role Phone Unavailable Primary Care Provider Unavailabl e Reason for Visit * Diagnostic Imaging (Routine) - Closed Specialty Diagnoses / Procedures Referred By Contac t Referred To Contact Procedures Breast Imaging Diagnostic Outside Reference Meli Farley MD Phone: tel: fax: Referral ID Status Reason Start Date Expiration Date Visits Re quested Visits Authorized [id number] Closed 04/21/2022 05/21/2023 1 1 Encounter Details Date Type Department Care Team (Late st Contact Info) Description 09/22/2015 Hospital Encounter [facility] [address] [place] [id number] Social History Tobacco Use Types Packs/Day Years Used Date Smoking Tobacco: Never Assessed Comments Unknown Sex and Gender Information Value Date Recorded Sex Assigned at Not on file Legal Sex Female 6:26 PM CIGAR WRAPPER Gender Identity Not on file Sexual Orientation [...] [facility]. Narrative [facility] - 04/21/2022 1:13 PM CDT EXAMINATION: Images For Reference Purposes Only us Meli Farley MD IMG MAMMO PROCEDURES Final Resu lt [facility] documented in this encounter Visit Diagnoses Not on filedocumented in this encounter
--- OUTSIDE RECORDS SUMMARY | 2024-10-10 08:03 | XMS_ITS | Encounter Summary ---
Author Organization [facility] Healthcare Address [address] [place] [address] Care Team Providers Care Multi Care Technician Name Role Phone Unavailable Primary Care Provider Unavailabl e Reason for Visit * Diagnostic Imaging (Routine) - Closed Specialty Diagnoses / Procedures Referred By Contac t Referred To Contact Procedures Breast Imaging Screening Outside Reference Meli Farley MD Phone: tel: fax: Referral ID Status Reason Start Date Expiration Date Visits Re quested Visits Authorized [id number] Closed 04/21/2022 05/21/2023 1 1 Encounter Details Date Type Department Care Team (Late st Contact Info) Description 12/31/2017 Hospital Encounter [facility] [address] [place] [id number] Social History Tobacco Use Types Packs/Day Years Used Date Smoking Tobacco: Never Assessed Comments Unknown Sex and Gender Information Value Date Recorded Sex Assigned at Not on file Legal Sex Female 6:26 PM 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 There will be no report generated by a [facility] Radiologist. Narrative [facility] - 04/21/2022 1:13 PM CDT EXAMINATION: Images For Reference Purposes Only us Meli Farley MD IMG MAMMO PROCEDURES Final Resu lt [facility] documented in this encounter Visit Diagnoses Not on filedocumented in this encounter
[2024-10-10 08:45] LABS: Iron 65 ug/dL (37-170)
[2024-10-10 08:54] LABS: Percent Iron Saturation 18 % (20-50)
[2024-10-10 08:56] LABS: Basophils Percent Auto 0.3 % (0.2-1.2); Eosinophils Absolute Auto 0.1 K/mm3 (0-0.3); Eosinophils Percent Auto 1.7 % (0-4.4); Hematocrit 41.2 % (37.0-47.0); Immature Granulocyte Absolute 0.03 K/mm3 (0.00-0.031); Immature Granulocyte Percent A 0.5 % (0-0.5); Lymphocytes Absolute Auto 2.57 K/mm3 (0.9-3.2); Lymphocytes Percent Auto 43.5 % (18.3-44.2); Mean Corpuscular HGB Conc 31.6 g/dl (32-36); Mean Corpuscular Hemoglobin 30.2 pg (26-34); Mean Corpuscular Volume 95.8 fl (80-100); Mean Platelet Volume 10.4 fl (7.4-10.4); Monocytes Absolute Auto 0.4 K/mm3 (0.1-0.6); Monocytes Percent Auto 6.6 % (2.6-8.5); Neutrophils Absolute Auto 2.8 K/mm3 (1.3-6.7); Neutrophils Percent Auto 47.4 % (45.5-73.1); Platelet Count Result 197 k/mm3 (150-375); Red Cell Distribution Width 14.3 % (11.5-14.5); White Blood Count 5.9 K/mm3 (4.5-10.0)
== END 2024-10-10 07:59 | disposition home or self-care (01) ==
LOC: ANHLAB 07:59
PROVIDERS: PCP Family Medicine; Visit Provider Student in an Organized Health Care Education/Training Program
DX: D50.9 Iron deficiency anemia, unspecified (principal)
CPT/HCPCS: 36415; 82728; 83540; 83550; 85025

== ENCOUNTER 2025-02-03 07:02 | Outpatient (CLI) | payer BC, OTHER, SELFPAY ==
[2025-02-03 07:52] LABS: Hematocrit 41.6 % (37.0-47.0); Hemoglobin 13.3 g/dL (12.0-15.0); Immature Granulocyte Percent A 0.1 % (0-0.5); Lymphocytes Absolute Auto 2.68 K/mm3 (0.9-3.2); Mean Corpuscular HGB Conc 32.0 g/dl (32-36); Mean Corpuscular Hemoglobin 31.1 pg (26-34); Mean Corpuscular Volume 97.2 fl (80-100); Nucleated Red Blood Cells Absolute Auto 0.000 K/mm3 (0.0-0.012); Nucleated Red Blood Cells Perc 0.0 % (0.0-0.2); Platelet Count Result 215 k/mm3 (150-375); Red Blood Count 4.28 M/mm3 (4.2-5.4); White Blood Count 6.8 K/mm3 (4.5-10.0)
[2025-02-03 08:10] LABS: Hemoglobin A1C 5.0 % (<5.7)
[2025-02-03 08:14] LABS: Iron 64 ug/dL (37-170)
[2025-02-03 08:17] LABS: Alanine Aminotransferase 20 U/L (6-35); Albumin Level 4.1 g/dL (3.5-5.1); Alkaline Phosphatase 82 U/L (38-126); Anion Gap 7 mmol/L (4-12); Aspartate Amino Transferase 26 U/L (14-36); Bilirubin,Total 0.3 mg/dL (0.2-1.3); Blood Urea Nitrogen 11 mg/dL (7-17); Calcium 9.3 mg/dL (8.4-10.2); Carbon Dioxide 29 mmol/L (22-30); Chloride 103 mmol/L (98-107); Cholesterol 178 mg/dL (0-200); Estimated Glomerular Filt Rate > 60; Glucose 97 mg/dL (65-110); HDL Direct 44 mg/dL; Potassium 3.6 mmol/L (3.4-5.0); Sodium 139 mmol/L (137-145); Total Protein 7.7 g/dL (6.3-8.2); Triglycerides 105 mg/dL (<150)
[2025-02-03 08:24] LABS: Percent Iron Saturation 19 % (20-50)
[2025-02-03 08:27] LABS: Free T4 Free Thyroxine 1.21 ng/dL (0.78-2.19)
[2025-02-03 08:51] LABS: Ferritin 26.80 ng/mL (11.1-264)
[2025-02-03 08:54] LABS: Thyroid Stimulating Hormone 2.570 uIU/mL (0.465-4.680)
== END 2025-02-03 07:03 | disposition home or self-care (01) ==
LOC: ANHLAB 07:04
PROVIDERS: PCP Family Medicine; Visit Provider Student in an Organized Health Care Education/Training Program
DX: E61.1 Iron deficiency (principal); E55.9 Vitamin D deficiency, unspecified; R53.83 Other fatigue; Z68.39 Body mass index [BMI] 39.0-39.9, adult; Z00.00 Encounter for general adult medical examination without abnormal findings; Z13.1 Encounter for screening for diabetes mellitus; Z13.220 Encounter for screening for lipoid disorders
CPT/HCPCS: 36415; 80053; 80061; 82306; 82728; 83036; 83540; 83550; 84439; 84443; 85025